=== PATIENT | female | born 1955 | race Caucasian/White ===

== ENCOUNTER → 2016-08-13 | Outpatient (CLI) | payer BC ==
--- OUTSIDE RECORDS SUMMARY | 2016-08-12 06:14 | XMS REPORT | Continuity of Care Document ---
Author Author [facility] Organization [facility] Address Unknown Phone Unavailable Allergies Active Description Code Type Severity Reaction Onset Reported/Identified Relationship to Patient Clinical Status Yes No Known Drug Allergies [id number] Drug Allergy Unknown N/ A 08/15/2015 Medications Problems Date Dx Coded Attending Type Code Diagnosis Diagnosed By 04/02/2015 ADELAIDE SIBLEY MD Ot Z12.31 04/09/2015 ADELAIDE SIBLEY MD Ot Z12.31 08/15/2015 LAWSON CARDOZA DO Ot S93.602A UNSPECIFIED SPRAIN OF LEFT FOOT, INITIAL 08/15/2015 LAWSON CARDOZA DO Ot W10.9XXA FALL (ON) (FROM) UNSPECIFIED STAIRS AND 08/15/2015 LAWSON CARDOZA DO Ot Y92.[address] IN UNSP NON-INSTITUT ( PRIVATE 08/15/2015 LAWSON CARDOZA DO Ot Y99.8 OTHER EXTERNAL CAUSE STATUS 08/16/2015 LAWSON CARDOZA DO Ot S93.602A 08/16/2015 LAWSON CARDOZA DO Ot W10.9XXA 08/16/2015 LAWSON CARDOZA DO Ot Y92.009 08/16/2015 LAWSON CARDOZA DO Ot Y99.8 12/11/2015 Ot 793.81 MAMMOGRAPHIC MICROCLACIFICATION 12/11/2015 Ot V76.12 OTH SCREEN MAMMO-MALIGN NEOPLASM OF PIPER 12/11/2015 Ot V76.12 OTH SCREEN MAMMO-MALIGN NEOPLASM OF PIPER 12/11/2015 ADELAIDE SIBLEY MD Ot V76.12 OTH SCREEN MAMMO-MALIGN NEOPLASM OF PIPER 12/11/2015 ADELAIDE SIBLEY MD Ot V76.12 OTH SCREEN MAMMO-MALIGN NEOPLASM OF PIPER 12/11/2015 ADELAIDE SIBLEY MD Ot Z12.31 ENCNTR SCREEN MAMMOGRAM FOR MALIGNANT NE 01/07/2016 Ot 793.81 MAMMOGRAPHIC MICROCLACIFICATION 01/07/2016 Ot V76.12 OTH SCREEN MAMMO-MALIGN NEOPLASM OF PIPER 01/07/2016 Ot V76.12 OTH SCREEN MAMMO-MALIGN NEOPLASM OF PIPER 01/07/2016 ADELAIDE SIBLEY MD Ot V76.12 OTH SCREEN MAMMO-MALIGN NEOPLASM OF PIPER 01/07/2016 ADELAIDE SIBLEY MD Ot V76.12 OTH SCREEN MAMMO-MALIGN NEOPLASM OF PIPER 01/07/2016 ADELAIDE SIBLEY MD Ot Z12.31 ENCNTR SCREEN MAMMOGRAM FOR MALIGNANT NE 01/28/2016 Ot 793.81 MAMMOGRAPHIC MICROCLACIFICATION 01/28/2016 Ot V76.12 OTH SCREEN MAMMO-MALIGN NEOPLASM OF PIPER 01/28/2016 Ot V76.12 OTH SCREEN MAMMO-MALIGN NEOPLASM OF PIPER 01/28/2016 TOÑITO MACDONALD, ADELAIDE Gonzalez Ot V76.12 OTH SCREEN MAMMO-MALIGN NEOPLASM OF PIPER 01/28/2016 ADELAIDE SIBLEY MD Ot V76.12 OTH SCREEN MAMMO-MALIGN NEOPLASM OF PIPER 01/28/2016 ADELAIDE SIBLEY MD Ot Z12.31 ENCNTR SCREEN MAMMOGRAM FOR MALIGNANT NE 04/08/2016 MERRY DUBOSE TALENT ADVISOR Ot Z12.31 ENCNTR SCREEN MAMMOGRAM FOR MALIGNANT NE 04/13/2016 MERRY DUBOSE TALENT ADVISOR Ot Z12.31 ENCNTR SCREEN MAMMOGRAM FOR MALIGNANT NE 04/16/2016 MERRY DUBOSE TALENT ADVISOR Ot Z12.31 ENCNTR SCREEN MAMMOGRAM FOR MALIGNANT NE Procedures Results Encounters ACCT No. Visit Date/Time Discharge Status Pt. Type Provider Facility Loc./Unit Complaint [id number] 08/15/2015 18:29:00 2015 20:25:00 DIS Emergency LAWSON CARDOZA DO [facility] ER L LEG PAIN [id number] 03/29/2015 10:10:00 2014 23:59:59 CLS Outpatient ADELAIDE SIBLEY MD [facility] RAD SCREENING [id number] 03/28/2014 09:18:00 2013 23:59:59 CLS Outpatient ADELAIDE SIBLEY MD [facility] RAD SCREENING [id number] 03/31/2013 14:22:00 2012 23:59:59 CLS Outpatient TOÑITO MACDONALD, ADELAIDE Gonzalez [facility] RAD SCREENING [id number] 08/12/2016 06:10:00 ACT Outpatient SHIRAZ MACDONALD, VIVIENNE Collier [facility] PREOP SCREENING [id number] 04/07/2016 13:08:00 ACT Outpatient MERRY DUBOSE APRN [facility] RAD SCREENING [id number] 03/31/2012 09:07:00 Document Registration [id number] 03/30/2011 10:46:00 Document Registration
[~2016-08-13] VITALS: Ht 154.9 cm; Wt 57.6 kg
[~2016-08-13] MED LIST: AMOX500C2
--- OUTSIDE RECORDS SUMMARY | 2016-08-13 08:33 | XMS REPORT | Continuity of Care Document ---
Author Author [facility] Organization [facility] Address Unknown Phone Unavailable Allergies Active Description Code Type Severity Reaction Onset Reported/Identified Relationship to Patient Clinical Status Yes No Known Drug Allergies [id number] Drug Allergy Unknown N/ A 08/13/2016 Medications Problems Date Dx Coded Attending Type [...] MAMMOGRAM FOR MALIGNANT NE 04/08/2016 MERRY DUBOSE CHEMISTRY INSTRUCTOR Ot Z12.31 ENCNTR SCREEN MAMMOGRAM FOR MALIGNANT NE 04/13/2016 MERRY DUBOSE CHEMISTRY INSTRUCTOR Ot Z12.31 ENCNTR SCREEN MAMMOGRAM FOR MALIGNANT NE 04/16/2016 MERRY DUBOSE CHEMISTRY INSTRUCTOR Ot Z12.31 ENCNTR SCREEN MAMMOGRAM FOR MALIGNANT NE Procedures Results Encounters ACCT No. Visit Date/Time Discharge Status Pt. Type Provider Facility Loc./Unit Complaint [id number] 08/15/2015 18:29:00 2015 20:25:00 DIS Emergency LAWSON CARDOZA DO [facility] ER L LEG PAIN [id number] 03/29/2015 10:10:00 2014 23:59:59 CLS Outpatient ADELAIDE SIBLEY MD [facility] RAD SCREENING [id number] 03/28/2014 09:18:00 2013 23:59:59 CLS Outpatient ADELAIDE SIBLEY MD [facility] RAD SCREENING [id number] 03/31/2013 14:22:00 2012 23:59:59 CLS Outpatient TOÑITO MACDONALD, ADELAIDE Gonzalez [facility] RAD SCREENING [id number] 08/13/2016 08:15:00 ACT Outpatient SHIRAZ MACDONALD, VIVIENNE Collier [facility] PREOP SCREENING [id number] 04/07/2016 13:08:00 ACT Outpatient MERRY DUBOSE APRN [facility] RAD SCREENING [id number] 03/31/2012 09:07:00 Document Registration [id number] 03/30/2011 10:46:00 Document Registration
== END ==
LOC: PREOP 08-12 06:10
PROVIDERS: ATTEND Internal Medicine
DX: Z01.818 Encounter for other preprocedural examination (principal); Z12.11 Encounter for screening for malignant neoplasm of colon

== ENCOUNTER 2016-08-14 09:04 | Day surgery (SDC) | payer BC ==
[~2016-08-14] VITALS: Ht 154.9 cm; Wt 57.6 kg
--- OUTSIDE RECORDS SUMMARY | 2016-08-14 09:11 | XMS REPORT | Continuity of Care Document ---
Author Author [facility] Organization [facility] Address Unknown Phone Unavailable Allergies Active Description Code Type Severity Reaction Onset Reported/Identified Relationship to Patient Clinical Status Yes No Known Drug Allergies [id number] Drug Allergy Unknown N/ A 08/13/2016 Medications [...] SCREEN MAMMO-MALIGN NEOPLASM OF PIPER 01/28/2016 ADELAIDE SIBLYE MD Ot Z12.31 ENCNTR SCREEN MAMMOGRAM FOR MALIGNANT NE 04/08/2016 MERRY DUBOSE SHELVER Ot Z12.31 ENCNTR SCREEN MAMMOGRAM FOR MALIGNANT NE 04/13/2016 MERRY DUBOSE SHELVER Ot Z12.31 ENCNTR SCREEN MAMMOGRAM FOR MALIGNANT NE 04/16/2016 MERRY DUBOSE SHELVER Ot Z12.31 ENCNTR SCREEN MAMMOGRAM FOR MALIGNANT NE Procedures Results Encounters ACCT No. Visit Date/Time Discharge Status Pt. Type Provider Facility Loc./Unit Complaint [id number] 08/15/2015 18:29:00 2015 20:25:00 DIS Emergency LAWSON CARDOZA DO [facility] ER L LEG PAIN [id number] 03/29/2015 10:10:00 2014 23:59:59 CLS Outpatient ADELAIDE SIBLEY MD [facility] RAD SCREENING [id number] 03/28/2014 09:18:00 2013 23:59:59 CLS Outpatient ADELAIDE SIBLEY MD [facility] RAD SCREENING [id number] 03/31/2013 14:22:00 2012 23:59:59 CLS Outpatient TOÑITO MACDONALD, ADELAIDE Gonzalez [facility] RAD SCREENING [id number] 08/13/2016 08:15:00 ACT Outpatient SHIRAZ MACDONALD, VIVIENNE Collier [facility] PREOP SCREENING [id number] 04/07/2016 13:08:00 ACT Outpatient MERRY DUBOSE APRN [facility] RAD SCREENING [id number] 03/31/2012 09:07:00 Document Registration [id number] 03/30/2011 10:46:00 Document Registration
--- OUTSIDE RECORDS SUMMARY | 2016-08-14 09:11 | XMS REPORT | Continuity of Care Document ---
Author Author [facility] Organization [facility] Address Unknown Phone Unavailable Allergies Active Description Code Type Severity Reaction Onset Reported/Identified Relationship to Patient Clinical Status Yes No Known Drug Allergies [id number] Drug Allergy Unknown N/ A 08/13/2016 Medications [...] MAMMOGRAM FOR MALIGNANT NE 04/08/2016 MERRY DUBOSE HOSPITAL WARD CLERK Ot Z12.31 ENCNTR SCREEN MAMMOGRAM FOR MALIGNANT NE 04/13/2016 MERRY DUBOSE HOSPITAL WARD CLERK Ot Z12.31 ENCNTR SCREEN MAMMOGRAM FOR MALIGNANT NE 04/16/2016 MERRY DUBOSE HOSPITAL WARD CLERK Ot Z12.31 ENCNTR SCREEN MAMMOGRAM FOR MALIGNANT NE Procedures Results Encounters ACCT No. Visit Date/Time Discharge Status Pt. Type Provider Facility Loc./Unit Complaint [id number] 08/15/2015 18:29:00 2015 20:25:00 DIS Emergency LAWSON CARDOZA DO [facility] ER L LEG PAIN [id number] 03/29/2015 10:10:00 2014 23:59:59 CLS Outpatient ADELAIDE SIBLEY MD [facility] RAD SCREENING [id number] 03/28/2014 09:18:00 2013 23:59:59 CLS Outpatient ADELAIDE SIBLEY MD [facility] RAD SCREENING [id number] 03/31/2013 14:22:00 2012 23:59:59 CLS Outpatient TOÑITO MACDONALD, ADELAIDE Gonzalez [facility] RAD SCREENING [id number] 08/13/2016 08:15:00 ACT Outpatient SHIRAZ MACDONALD, VIVIENNE Collier [facility] PREOP SCREENING [id number] 04/07/2016 13:08:00 ACT Outpatient MERRY DUBOSE APRN [facility] RAD SCREENING [id number] 03/31/2012 09:07:00 Document Registration [id number] 03/30/2011 10:46:00 Document Registration
[2016-08-14 09:15] VITALS: BP 114/78
--- NOTE | 2016-08-14 09:21 | Pre-Op Note & Conscious Sedat ---
Pre-Operative Progress Note H&P Reviewed The H&P was reviewed, patient examined and no changes noted. Date H&P Reviewed: Aug 14, 2016 Time H&P Reviewed: 09:21 Conscious Sedation Pre-Proced ASA Class: 1, 2 Airway Mallampati Classification: (cheesh-na appropriate class) I. II. III, IV Lungs Heart ASA score ASA 1: a normal healthy patient ASA 2: a patient with a mild systemic disease (mid diabetes, controlled hypertension, obesity ASA 3: a patient with a severe systemic disease that limits activity (angina , COPD, prior Myocardial infarction) ASA 4: a patient with an incapacitating disease that is a constant threat to life (CHF, renal failure) ASA 5: a moribund patient not expected to survive 24 hrs. (ruptured aneurysm) ASA 6: a declared brain patient whose organs are being harvested. For emergent operations, add the letter E after the classification Grade 2 Sedation Plan: Analgesia, Amnesia, Plan communicated to team members, Discussed options with patient/fam, Discussed risks with patient/fam Note The patient is an appropriate candidate to undergo the planned procedure, sedation, and anesthesia. The patient immediately re-assessed prior to indication. VIVIENNE WELDON MD Aug 14, 2016 09:21
[2016-08-14] MEDS ORDERED: fentaNYL INJECTION 100 MCG/2 ML AMP IVP PRN (09:30)
[2016-08-14] MEDS ORDERED: MIDAZOLAM 2 MG/2 ML (VERSED) VIAL IVP PRN (09:30)
[2016-08-14] MEDS ORDERED: FLUMAZENIL (ROMAZICON) 0.1 MG/ML 5 ML VIAL INJ PRN (09:30)
[2016-08-14] MEDS ORDERED: LIDOCAINE JELLY 2% (XYLOCAINE) 5 ML TUBE MM PRN (09:30)
[2016-08-14] MEDS ORDERED: NALOXONE 0.4 MG/ML 1 ML (NARCAN) VIAL IVP PRN (09:30)
[2016-08-14] MEDS ORDERED: 1/2 NS IV SOLUTION 1,000 ML IV PRN (09:30)
[2016-08-14] MEDS ORDERED: PROPOFOL INJECTION 50 ML IV ONE (09:45)
[2016-08-14] MEDS ORDERED: MIDAZOLAM 2 MG/2 ML (VERSED) VIAL ONE (09:46)
[2016-08-14] MEDS ORDERED: FAMOTIDINE 20MG/2ML IV (PEPCID) ONE (09:50)
[2016-08-14] MEDS ORDERED: LIDOCAINE JELLY 2% (XYLOCAINE) 5 ML TUBE ONE (09:55)
--- NOTE | 2016-08-14 09:58 | HISTORY AND PHYSICAL ---
DICTATING PHYSICIAN: Dr. Johnson DATE OF ADMISSION: 08/14/2016 Mrs. Jean-Baptiste is a 51-year-old white female referred by Dr. Hanson for screening colonoscopy. She last underwent colonoscopy in 2007 at which time she had one polyp removed from her hepatic flexure. Previously on her first colonoscopy in 2002 she had had an adenomatous pedunculated polyp removed from her sigmoid colon. There have been no changes in her family history, from a colon standpoint. She is not aware of any family history for colon cancer or colon polyps. Her brother did from lung cancer at the age of 58 and was a heavy smoker. She does have a history of IBS. Earlier on she was diarrhea predominant, now she has more issues with constipation. She does recall waking up during her last colonoscopy and having some discomfort and she is concerned about this. For this reason we did discuss anesthesia and the administration of Diprivan which she is in agreement with. She has noted no bowel habit change and denies any bright red blood per rectum. She denies any significant past surgical history SOCIAL HISTORY: She is employed with no past smoking history and rare alcohol intake. ALLERGIES: She reports no known medical allergies. MEDICATIONS: She takes no current prescription medication. She does take occasional Tylenol and ibuprofen. PHYSICAL EXAMINATION: Reveals a pleasant normal weight white female, appears to be in no acute distress. Blood pressure is 120/64. CHEST: Clear. CV: Reveals regular rate and rhythm without murmur, S3 or S4. She is a Mallampati class II oropharyngeal configuration. Pharynx is clear. ABDOMEN: Soft, supple without masses, organomegaly or tenderness. Bowel sounds are present. EXTREMITIES: Reveal no cyanosis, clubbing, or edema. SKIN: Skin evaluation reveals no suspicious nevi and no evidence for telangiectasia. ASSESSMENT: The patient was set-up for screening colonoscopy on 08/14. Anesthesia was contacted as well for Diprivan administration considering history of IBS and previous difficulty with conscious sedation. Questions were answered and prep instructions were given. Electronic medical record was reviewed and 45 minutes of care time was spent today. I thank you for the referral of this pleasant lady. Sincerely, Srikanth Johnson Job ID: [id number] Dictated Date: 08/11/2016 20:15:00 Network Support Administrator Date: 08/12/2016 09:55:13/olivia
[2016-08-14] MEDS ORDERED: proPOfol 200 MG/20 ML (DIPRIVAN) VIAL IV ONE (10:17)
[2016-08-14 10:50] VITALS: BP 130/85
[2016-08-14 11:20] VITALS: BP 127/82
[2016-08-14 11:35] VITALS: BP 127/82
--- NOTE | 2016-08-14 20:12 | PROCEDURE REPORT ---
PROCEDURE PHYSICIAN: VIVIENNE WELDON DATE OF PROCEDURE: 08/14/2016 INDICATION FOR THE PROCEDURE: Screening colonoscopy. PROCEDURE: The patient was placed in the left lateral decubitus position. Prior to undergoing colonoscopy, digital rectal evaluation was performed. Anal sphincter tone was normal and perianal reflex was intact. No abnormalities were noted to digital inspection of the anal canal or distal rectal vault. The colonoscope was inserted into the rectum and under visualization, advanced to the cecum. The cecum was identified by identification of the ileocecal valve and cecal strap, as well as appendiceal orifice. Photographic documentation was obtained. Careful inspection was made as the colonoscope was withdrawn. The patient did have an irritable bowel type response to air insufflation and colonic manipulation, despite Diprivan per anesthesia. Diprivan was given due to history of significant IBS and secondary anxiety over the procedure. For these reasons I was fairly certain that conscious sedation was not going to be adequate for keeping this patient comfortable. FINDINGS: There no evidence for internal or external hemorrhoids and the rectum, sigmoid colon, descending colon, transverse colon, ascending colon were unremarkable. The patient did have a fair amount of sigmoid spasm during the procedure. A diminutive 2 mm sessile polyp was present in the cecum. It was photographed, biopsied and ablated, with no blood loss being noted. The appendiceal orifice and the remainder of the cecum were unremarkable. ASSESSMENT: One diminutive polyp was removed from the cecum without blood loss being noted at the time of the procedure. The patient did have a lot of sigmoid spasm and irritable bowel type response as noted above requiring Diprivan per anesthesia. As long as there are no surprises on histopathology report, would advocate repeat screening colonoscopy in 10 years as long as there continues to be no family history of first degree relatives with colon cancer. I thank you for the referral of this pleasant lady. Sincerely, Job ID: [id number] Dictated Date: 08/14/2016 11:01:20 Blanchard Grinder Operator Date: 08/14/2016 20:05:35 / goran
== END 2016-08-14 11:35 | disposition home or self-care (01) ==
LOC: ENDO 09:04
PROVIDERS: ATTEND Internal Medicine
DX: Z12.11 Encounter for screening for malignant neoplasm of colon (principal); K63.5 Polyp of colon; K58.9 Irritable bowel syndrome, unspecified
CPT/HCPCS: 88305

== ENCOUNTER → 2017-03-01 | Outpatient (CLI) | payer BC | LOC: CARD 13:12 | PROVIDERS: ATTEND Nurse Practitioner Family | DX: R01.1 Cardiac murmur, unspecified (principal) | CPT/HCPCS: 93306 ==

== ENCOUNTER → 2017-04-27 | Outpatient (CLI) | payer BC ==
--- NOTE | 2017-04-28 19:25 | Diagnostic Imaging Report ---
Bilateral screening mammogram 2D views with tomosynthesis. The current study was also evaluated with a Computer Aided Detection (CAD) system. INDICATION: Screening. No current complaints stated on the questionnaire. COMPARISON: 04/07/16. FINDINGS: The breasts are composed of heterogeneously dense parenchyma which may decrease mammographic sensitivity. Benign-appearing calcifications are seen. Allowing for technique and positional differences, no suspicious change is seen. IMPRESSION: Dense breasts with no definite change. ACR BI-RADS Category 2: Benign findings. Result letter will be mailed to the patient. Note: At least 10% of breast cancer is not imaged by mammography. Dictated on workstation # [id number]
== END ==
LOC: RAD 15:06
PROVIDERS: ATTEND Family Medicine
DX: Z12.31 Encounter for screening mammogram for malignant neoplasm of breast (principal)
CPT/HCPCS: 77067

== ENCOUNTER → 2017-08-06 | Outpatient (CLI) | payer BC ==
--- NOTE | 2017-08-06 10:37 | Diagnostic Imaging Report ---
INDICATION: Palpable lump in the soft tissues of the low back. TECHNIQUE: Sonographic interrogation of the area of palpable abnormality in the left paramidline low back was performed. FINDINGS: There is a well-defined, ovoid hypoechoic mass at this location measuring 4.4 x 2.4 x 3.6 cm. This does demonstrate internal echogenicity. No internal vascularity is identified. There is good posterior acoustic enhancement. This may represent a complex cyst such as an enlarged sebaceous cyst. This is just below the skin surface. IMPRESSION: Complex cystic mass in the subcutaneous tissues of the left para midline low back corresponding to the palpable abnormality. This may represent an enlarged sebaceous cyst. Close clinical followup is recommended to confirm stability and resolution. Dictated by: Dictated on workstation # [id number]
== END ==
LOC: RAD 09:05
PROVIDERS: ATTEND Nurse Practitioner Family
DX: R22.2 Localized swelling, mass and lump, trunk (principal)
CPT/HCPCS: 76604

== ENCOUNTER 2017-08-08 11:32 | Emergency (ER) | payer BC ==
[~2017-08-08] VITALS: Ht 154.9 cm; Wt 52.2 kg
--- OUTSIDE RECORDS SUMMARY | 2017-08-08 11:36 | XMS REPORT | Continuity of Care Document ---
Author Author [facility] Organization [facility] Address Unknown Phone Unavailable Allergies Active Description Code Type Severity Reaction Onset Reported/Identified Relationship to Patient Clinical Status Yes No Known Drug Allergies [id number] Drug Allergy Unknown N/A 08/13/2016 Medications There is no data. Problems Date Dx Coded Attending Type Code Diagnosis Diagnosed By 04/02/2015 ADELAIDE SIBLEY MD Ot Z12.31 04/09/2015 ADELAIDE SIBLEY MD Ot Z12.31 08/15/2015 LAWSON CARDOZA DO Ot S93.602A UNSPECIFIED SPRAIN OF LEFT FOOT, INITIAL 08/15/2015 LAWSON CARDOZA DO Ot W10.9XXA FALL (ON) (FROM) UNSPECIFIED STAIRS AND 08/15/2015 LAWSON CARDOZA DO Ot Y92.[address] IN UNSP NON-INSTITUT (PRIVATE 08/15/2015 LAWSON CARDOZA DO Ot Y99.8 OTHER [...] OTH SCREEN MAMMO-MALIGN NEOPLASM OF PIPER 01/07/2016 TOÑITO MACDONALD, ADELAIDE Gonzalez Ot V76.12 OTH SCREEN MAMMO-MALIGN NEOPLASM OF PIPER 01/07/2016 TOÑITO MACDONALD, ADELAIDE Gonzalez Ot V76.12 OTH SCREEN MAMMO-MALIGN NEOPLASM OF PIPER 01/07/2016 TOÑITO MACDONALD, ADELAIDE Gonzalez Ot Z12.31 ENCNTR SCREEN MAMMOGRAM FOR MALIGNANT NE 01/28/2016 Ot 793.81 MAMMOGRAPHIC MICROCLACIFICATION 01/28/2016 Ot V76.12 OTH SCREEN MAMMO-MALIGN NEOPLASM OF PIPER 01/28/2016 Ot V76.12 OTH SCREEN MAMMO-MALIGN NEOPLASM OF PIPER 01/28/2016 TOÑITO MACDONALD, ADELAIDE Gonzalez Ot V76.12 OTH SCREEN MAMMO-MALIGN NEOPLASM OF PIPER 01/28/2016 TOÑITO MACDONALD, ADELAIDE Gonzalez Ot V76.12 OTH SCREEN MAMMO-MALIGN NEOPLASM OF PIPER 01/28/2016 TOÑITO MACDONALD, ADELAIDE Gonzalez Ot Z12.31 ENCNTR SCREEN MAMMOGRAM FOR MALIGNANT NE 04/08/2016 MERRY DUBOSE CLERK CHECKER Ot Z12.31 ENCNTR SCREEN MAMMOGRAM FOR MALIGNANT NE 04/13/2016 MERRY DUBOSE CLERK CHECKER Ot Z12.31 ENCNTR SCREEN MAMMOGRAM FOR MALIGNANT NE 04/16/2016 MERRY DUBOSE CLERK CHECKER Ot Z12.31 ENCNTR SCREEN MAMMOGRAM FOR MALIGNANT NE 08/14/2016 VIVIENNE WELDON MD Ot K58.9 IRRITABLE BOWEL SYNDROME WITHOUT DIARRHE 08/14/2016 VIVIENNE WELDON MD Ot K63.5 POLYP OF COLON 08/14/2016 VIVIENNE WELDON MD Ot Z12.11 ENCOUNTER FOR SCREENING FOR MALIGNANT NE 08/19/2016 VIVIENNE WELDON MD Ot K58.9 IRRITABLE BOWEL SYNDROME WITHOUT DIARRHE 08/19/2016 VIVIENNE WELDON MD Ot K63.5 POLYP OF COLON 08/19/2016 VIVIENNE WELDON MD Ot Z12.11 ENCOUNTER FOR SCREENING FOR MALIGNANT NE 08/19/2016 VIVIENNE WELDON MD Ot K58.9 IRRITABLE BOWEL SYNDROME WITHOUT DIARRHE 08/19/2016 VIVIENNE WELDON MD Ot K63.5 POLYP OF COLON 08/19/2016 VIVIENNE WELDON MD Ot Z12.11 ENCOUNTER FOR SCREENING FOR MALIGNANT NE 08/20/2016 VIVIENNE WELDON MD Ot K58.9 IRRITABLE BOWEL SYNDROME WITHOUT DIARRHE 08/20/2016 VIVIENNE WELDON MD Ot K63.5 POLYP OF COLON 08/20/2016 VIVIENNE WELDON MD Ot Z12.11 ENCOUNTER FOR SCREENING FOR MALIGNANT NE 03/03/2017 GEETHA NUNEZ Ot R01.1 CARDIAC MURMUR, UNSPECIFIED 03/07/2017 GEETHA NUNEZ Ot R01.1 CARDIAC MURMUR, UNSPECIFIED 03/17/2017 GEETHA NUNEZ Ot R01.1 CARDIAC MURMUR, UNSPECIFIED 05/06/2017 YOGI JOHNSON MD Ot Z12.31 ENCNTR SCREEN MAMMOGRAM FOR MALIGNANT NE Procedures There is no data. Results There is no data. Encounters ACCT No. Visit Date/Time Discharge Status Pt. Type Provider Facility Loc./Unit Complaint [id number] 04/27/2017 15:06:00 04/27/2017 23:59:59 CLS Outpatient YOGI JOHNSON MD [facility] RAD SCREENING [id number] 03/01/2017 13:12:00 03/01/2017 23:59:59 CLS Outpatient GEETHA NUNEZ [facility] CARD HEART MURMUR [id number] 08/14/2016 09:04:00 08/14/2016 11:35:00 DIS Outpatient VIVIENNE WELDON MD [facility] ENDO SCREENING [id number] 08/13/2016 08:15:00 08/13/2016 23:59:59 CLS Outpatient VIVIENNE WELDON MD [facility] PREOP SCREENING [id number] 04/07/2016 13:08:00 04/07/2016 23:59:59 CLS Outpatient MERRY DUBOSE APRN [facility] RAD SCREENING [id number] 08/15/2015 18:29:00 08/15/2015 20:25:00 DIS Emergency LAWSON CARDOZA DO [facility] ER L LEG PAIN [id number] 03/29/2015 10:10:00 03/29/2015 23:59:59 CLS Outpatient ADELAIDE SIBLEY MD [facility] RAD SCREENING [id number] 03/28/2014 09:18:00 03/28/2014 23:59:59 CLS Outpatient ADELAIDE SIBLEY MD [facility] RAD SCREENING [id number] 03/31/2013 14:22:00 03/31/2013 23:59:59 CLS Outpatient ADELAIDE SIBLEY MD [facility] RAD SCREENING [id number] 08/08/2017 11:33:00 ACT Emergency ROSEMARY MACDONALD, VIVIENNE Pimentel [facility] ER ABSCESS ON BACK [id number] 08/06/2017 09:05:00 ACT Outpatient MERRY DUBOSE APRN [facility] RAD NODULE AT LUMBAR SPINE [id number] 03/31/2012 09:07:00 Document Registration [id number] 03/30/2011 10:46:00 Document Registration
--- NOTE | 2017-08-08 12:17 | ED Integumentary General ---
General Chief Complaint: Skin/Wound Problems Stated Complaint: ABSCESS ON BACK Nursing Triage Note: PT HAS ABSCESS TO MID LOWER BACK. PT WAS SEEN AND TX FOR THIS ON 08/06/17. SHE IS TAKING KEFLEX AND PREDNISONE. PT ALSO HAD US ON WOUND ON 08/06/17. Source: patient Exam Limitations: no limitations History of Present Illness Date Seen by Provider: Aug 08, 2017 Time Seen by Provider: 12:03 Initial Comments 62-year-old white female presents with progressive abscess over the sacral area. Patient was placed on Keflex without improvement. Next Patient denies chills or fever. Patient denies change in bowel habits. There is been no pain with bowel movements. Patient denies similar soda in the past to this area. Allergies and Home Medications Allergies Coded Allergies: No Known Drug Allergies (Unverified , 08/13/16) Home Medications No Active Prescriptions or Reported Meds Patient Home Medication List Home Medication List Reviewed: Yes Constitutional: No chills, No fever EENTM: no symptoms reported Respiratory: no symptoms reported Cardiovascular: no symptoms reported Gastrointestinal: no symptoms reported Genitourinary: no symptoms reported Musculoskeletal: no symptoms reported Skin: other (abscess over the sacral area) Psychiatric/Neurological: No Symptoms Reported Endocrine: No Symptoms Reported Past Ihosplr-Isorwm-Onciuf Hx Patient Social History Alcohol Use: Denies Use Recreational Drug Use: No Smoking Status: Never a Smoker 2nd Hand Smoke Exposure: No Recent Foreign Travel: No Contact w/Someone Who Travel: No Recent Infectious Disease Expo: No Recent Hopitalizations: No Immunizations Up To Date Date of Influenza Vaccine: Mar 02, 2016 Seasonal Allergies Seasonal Allergies: Yes Surgeries History of Surgeries: Yes (R ankle, bilateral knee scope) Surgeries: Orthopedic Respiratory History of Respiratory Disorde: No Cardiovascular History of Cardiac Disorders: No Neurological History of Neurological Disord: No Reproductive System Hx Reproductive Disorders: No Sexually Transmitted Disease: No HIV/AIDS: No Female Reproductive Disorders: Denies Gastrointestinal History of Gastrointestinal Di: Yes Gastrointestinal Disorders: Polyps, Irritable Bowel Musculoskeletal History of Musculoskeletal Dis: No Endocrine History of Endocrine Disorders: No HEENT Loss of Vision: Bilateral Hearing Impairment: Denies Cancer History of Cancer: No Psychosocial History of Psychiatric Problem: No Integumentary History of Skin or Integumenta: No Blood Transfusions History of Blood Disorders: No Adverse Reaction to a Blood Tr: No (N/A) Reviewed Nursing Assessment Reviewed/Agree w Nursing PMH: Yes Physical Exam Vital Signs Vital Signs - First Documented 08/08/17 11:45 Temp 98.9 Pulse 85 Resp 16 B/P (MAP) 133/71 (91) Pulse Ox 98 O2 Delivery Room Air Capillary Refill : Less Than 3 Seconds General Appearance: WD/WN, no apparent distress HEENT: normal ENT inspection Neck: normal inspection Respiratory: no respiratory distress Back: normal inspection Extremities: normal range of motion, normal inspection Neurologic/Psychiatric: no motor/sensory deficits, alert Skin: other (there is a 10 cm diameter abscess over the sacral area. 1 percent Xylocaine was employed for local anesthesia and the abscess was incised and drained with a number 11 blade. Approximately 50 mL of purulent material was expressed. The wound was packed after a culture and sensitivity was obtained.) Progress/Results/Core Measures Results/Orders Vital Signs/I&O Vital Sign - Last 12Hours 08/08/17 11:45 Temp 98.9 Pulse 85 Resp 16 B/P (MAP) 133/71 (91) Pulse Ox 98 O2 Delivery Room Air Blood Pressure Mean: 91 Progress Note : Time: 12:19 Progress Note The abscess was incised and drained, cultured, and packed. Telephone consultation was undertaken with Dr. Grissom. Patient will keep her appointment with Dr. Grissom tomorrow. Patient was placed on Bactrim and hydrocodone. Patient received a fentanyl injection in the emergency department. Departure Impression Impression: Primary Impression: Abscess Disposition: 01 HOME, SELF-CARE Condition: Improved Departure-Patient Inst. Decision time for Depature: 12:24 Referrals: YOGI JOHNSON MD (PCP/Family) Primary Care Physician TORO GRISSOM DO Patient Instructions: Abscess Incision and Drainage (DC) Add. Discharge Instructions: Bactrim and [place] as prescribed. Follow-up with Dr. Grissom tomorrow as scheduled. Return if any problems or questions. All discharge instructions reviewed with patient and/or family. Voiced understanding. Scripts No Active Prescriptions or Reported Meds VIVIENNE RILEY MD Aug 08, 2017 12:17
[2017-08-08] MEDS ORDERED: fentaNYL INJECTION 100 MCG/2 ML AMP IVP ONE (12:30)
[2017-08-08] MEDS ORDERED: fentaNYL INJECTION 100 MCG/2 ML AMP IM ONE (12:30)
[2017-08-08 12:40] VITALS: BP 133/71
== END 2017-08-08 12:40 | disposition home or self-care (01) ==
LOC: EDUNIT# 11:32 → ER 11:33
DX: L02.212 Cutaneous abscess of back [any part, except buttock and flank] (principal); Z87.19 Personal history of other diseases of the digestive system; Z79.52 Long term (current) use of systemic steroids
CPT/HCPCS: 87070; 87205

== ENCOUNTER → 2018-05-02 | Outpatient (CLI) | payer BC ==
--- NOTE | 2018-05-02 13:34 | Diagnostic Imaging Report ---
INDICATION: Routine screening. COMPARISON: 04/27/2017 and 04/07/2016. TECHNIQUE: 2D and 3D bilateral screening mammography was performed with CAD. FINDINGS: Both breasts remain heterogeneously dense, limiting the sensitivity of mammography. The parenchymal pattern appears stable. No dominant mass or malignant appearing microcalcifications are seen. There are benign calcifications bilaterally. The axillae are unremarkable. IMPRESSION: No mammographic features suspicious for malignancy are identified. ACR BI-RADS Category 2: Benign findings. Result letter will be mailed to the patient. Note: At least 10% of breast cancer is not imaged by mammography. Dictated by: Dictated on workstation # [id number]
== END ==
LOC: RAD 08:28
PROVIDERS: ATTEND Family Medicine
DX: Z12.31 Encounter for screening mammogram for malignant neoplasm of breast (principal)
CPT/HCPCS: 77067

== ENCOUNTER → 2019-05-03 | Outpatient (CLI) | payer BC ==
--- NOTE | 2019-05-03 08:29 | Diagnostic Imaging Report ---
Digital mammogram. Bilateral screening. The study was compared to the prior exams of 05/02/2018, 04/27/2017 and 04/07/2016. At this time there are no current complaints. The current study was also evaluated with a Computer Aided Detection (CAD) system. FINDINGS: The fibroglandular tissue in both breasts is heterogeneously dense. This does limit the sensitivity of this exam. Overall, there does not appear to have been any significant change when compared to the prior study. No primary or secondary sign of malignancy is noted. IMPRESSION: There is no radiographic evidence for malignancy. ACR BI-RADS Category 1: Negative. Result letter will be mailed to the patient. Note: At least 10% of breast cancer is not imaged by mammography. Dictated by: Dictated on workstation # [id number]
== END ==
LOC: RAD 07:54
PROVIDERS: ATTEND Family Medicine
DX: Z12.31 Encounter for screening mammogram for malignant neoplasm of breast (principal)
CPT/HCPCS: 77067

== ENCOUNTER → 2020-03-21 | Outpatient (CLI) | payer BC ==
--- NOTE | 2020-03-21 16:49 | Diagnostic Imaging Report ---
EXAM: Lumbar spine - 2-3 views. INDICATION: Low back pain. COMPARISON: None. FINDINGS: There are five lumbar-type vertebral bodies. Normal alignment. Vertebral body heights are preserved. Mild diffuse degenerative endplate changes. Mild facet arthropathy at L5-S1. Moderate degenerative changes in the sacroiliac joints. IMPRESSION: 1. Mild spondylotic changes in the lumbar spine. No acute findings. 2. Moderate degenerative changes in the sacroiliac joints. Dictated by: Dictated on workstation # [id number]
== END ==
LOC: RAD 15:37
PROVIDERS: ATTEND Nurse Practitioner Family
DX: M47.816 Spondylosis without myelopathy or radiculopathy, lumbar region (principal); M47.817 Spondylosis without myelopathy or radiculopathy, lumbosacral region; M53.3 Sacrococcygeal disorders, not elsewhere classified
CPT/HCPCS: 72100

== ENCOUNTER → 2020-05-06 | Outpatient (CLI) | payer BC ==
--- NOTE | 2020-05-06 11:37 | Diagnostic Imaging Report ---
INDICATION: Routine screening. Comparison is made with prior mammogram 05/03/2019 and 05/02/2018. 2-D and 3-D bilateral screening mammography was performed with CAD. Both breasts are heterogeneously dense, limiting the sensitivity of mammography. There are benign calcifications present. No mass or malignant appearing microcalcifications are seen. Axillae are unremarkable. IMPRESSION: BI-RADS Category 2 No mammographic features suspicious for malignancy are identified. ACR BI-RADS Category 2: Benign findings. Result letter will be mailed to the patient. Note: At least 10% of breast cancer is not imaged by mammography. Dictated by: Dictated on workstation # [id number]
== END ==
LOC: RAD 08:15
PROVIDERS: ATTEND Nurse Practitioner Family
DX: Z12.31 Encounter for screening mammogram for malignant neoplasm of breast (principal)
CPT/HCPCS: 77063; 77067

== ENCOUNTER → 2021-05-07 | Outpatient (CLI) | payer BC ==
--- NOTE | 2021-05-08 11:19 | Diagnostic Imaging Report ---
INDICATION: Routine screening. COMPARISON is made with prior mammograms from 05/06/2020 and 05/03/2019. 2-D and 3-D bilateral screening mammography was performed with CAD. Both breasts are heterogeneously dense, limiting the sensitivity of mammography. The parenchymal pattern appears stable. There are scattered benign calcifications bilaterally. No mass or malignant appearing microcalcifications are seen. Axillae are unremarkable. IMPRESSION: BI-RADS Category 2 No mammographic features suspicious for malignancy are identified. ACR BI-RADS Category 2: Benign findings. Result letter will be mailed to the patient. Note: At least 10% of breast cancer is not imaged by mammography. Dictated by: Dictated on workstation # [id number]
== END ==
LOC: RAD 14:52
PROVIDERS: ATTEND Nurse Practitioner Family
DX: Z12.31 Encounter for screening mammogram for malignant neoplasm of breast (principal)
CPT/HCPCS: 77063; 77067

== ENCOUNTER 2021-06-11 05:28 | Outpatient (RCR) | payer BC ==
[~2021-06-11] VITALS: Ht 154.9 cm; Wt 54.4 kg
[2021-06-11] MEDS ORDERED: ESTR42.52 VG (12:24)
[2021-06-11] MEDS ORDERED: OMEP-401 PO (12:24)
== END 2021-06-11 09:41 | disposition home or self-care (01) ==
LOC: PREOP 05:28
PROVIDERS: ATTEND Internal Medicine
DX: K62.5 Hemorrhage of anus and rectum (principal); Z20.822 Contact with and (suspected) exposure to COVID-19
CPT/HCPCS: 87635

== ENCOUNTER 2021-06-13 07:10 | Day surgery (SDC) | payer BC ==
--- NOTE | 2021-06-09 20:07 | HISTORY AND PHYSICAL ---
DATE OF SERVICE: PANENDOSCOPY HISTORY AND PHYSICAL HISTORY OF PRESENT ILLNESS: The patient is a 66-year-old white female referred by Dr. Hanson for consideration for panendoscopy. She has had 2 episodes of rather large volume bright red blood per rectum. She has no known past history of hemorrhoids. She denied any associated pain. Denied any associated constipation or bowel habit change with this. First episode was a month ago and the last episode was just a little over a week ago. She does have a past history of adenomatous colonic polyps. Her last colonoscopy was in 2017 with recommendation for 5-year surveillance procedure due to past history of adenomatous polyps. Separate from this, she has been having increased problems with epigastric pain intermittently around Thanksgiving time. She discontinued ibuprofen, but her pain did not improve. She has had an episode of nausea with vomiting that lasted about 12 hours. This occurred several weeks ago. She denied hematemesis or melena and had no rectal bleeding at that time. She has had no night sweats, chills, fever, or change in weight and denies dysphagia. PAST MEDICAL HISTORY: Other than stated above is fairly unremarkable other than a history of reflux for which she has been taking the omeprazole that still having epigastric discomfort. MEDICATIONS ON ADMISSION: Include estradiol vaginal cream for atrophic vaginitis and calcium, magnesium and vitamin D supplementation. PAST SURGICAL HISTORY: She still has her gallbladder and no history of appendectomy. She has had right carpal tunnel repair several years ago and also had a left wrist fracture requiring ORIF. SOCIAL HISTORY: She is employed with no past smoking and only rare social alcohol intake. FAMILY HISTORY: Brother from lung cancer at the age of 58, was a heavy smoker. She is not aware of any family history for colon cancer or other GI tract malignancy. REVIEW OF SYSTEMS: CONSTITUTIONAL: Denies night sweats, chills, fever, change in weight and is fully vaccinated for COVID. GASTROINTESTINAL: As noted in the HPI. PULMONARY: Denies cough, wheezing or shortness of breath. CARDIOVASCULAR: Denies chest pain, orthopnea, PND or pedal edema. PHYSICAL EXAMINATION: GENERAL: Reveals a pleasant white female, did not appear to be in acute distress. VITAL SIGNS: Blood pressure 112/70, weight 120, which is down 7 pounds from over 4-1/2 years ago. HEENT: Unremarkable. CHEST: Clear. CARDIOVASCULAR: Reveals a regular rate and rhythm without murmur, S3 or S4. ABDOMEN: Soft, supple with epigastric pain to palpation was present without rebound or guarding. No mass or organomegaly was noted. EXTREMITIES: Reveal no cyanosis, clubbing or edema. ASSESSMENT AND PLAN: The patient is undergoing diagnostic colonoscopy due to past history of adenomatous colonic polyps as well as recent episodes of bright red blood per rectum. She is undergoing diagnostic EGD for epigastric pain and heartburn type symptoms refractory to daily omeprazole. The patient is being set up for 06/13/2021. Prep instructions with the Suprep kit were given and electronic medical record was reviewed. I thank you for the referral of this pleasant lady. 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
[~2021-06-13] VITALS: Ht 155 cm; Wt 54.4 kg
[~2021-06-13 07:10] MED LIST changes: +ESTR42.52 VG; +OMEP-401 PO
[2021-06-13] MEDS ORDERED: LACTATED RINGERS 1,000 ML IV ONE (07:14)
[2021-06-13] MEDS ORDERED: MIDAZOLAM 2 MG/2 ML (VERSED) VIAL ONE (07:18)
[2021-06-13] MEDS ORDERED: PROPOFOL INJECTION 50 ML IV ONE (07:18)
[2021-06-13] MEDS ORDERED: LACTATED RINGERS 1,000 ML IV STA (07:19)
[2021-06-13] MEDS ORDERED: HURRICAINE EXT TUBE (BENZOCAINE) XX PRN (07:30)
[2021-06-13 07:37] VITALS: BP 120/85
--- NOTE | 2021-06-13 07:56 | Pre-Op Note & Conscious Sedat ---
Pre-Operative Progress Note H&P Reviewed The H&P was reviewed, patient examined and no changes noted. Date H&P Reviewed: Jun 13, 2021 Time H&P Reviewed: 07:45 Conscious Sedation Pre-Proced ASA Score 1 For ASA 3 and 4: Consider anesthesia and medical clearance. Also, for patients with a history of failed moderate sedation consider anesthesia. Airway Lungs Heart ASA score ASA 1: a normal healthy patient ASA 2: a patient with a mild systemic disease (mid diabetes, controlled hypertension, obesity ASA 3: a patient with a severe systemic disease that limits activity (angina, COPD, prior Myocardial infarction) ASA 4: a patient with an incapacitating disease that is a constant threat to life (CHF, renal failure) ASA 5: a moribund patient not expected to survive 24 hrs. (ruptured aneurysm) ASA 6: a declared brain- patient whose organs are being harvested. For emergent operations, add the letter E after the classification Mallampati Classification Grade 2 Sedation Plan Analgesia, Amnesia, Plan communicated to team members, Discussed options with patient/fam, Discussed risks with patient/fam The patient is an appropriate candidate to undergo the planned procedure, sedation, and anesthesia. The patient immediately re-assessed prior to indication. VIVIENNE WELDON MD Jun 13, 2021 07:56
[2021-06-13] MEDS ORDERED: proPOfol 200 MG/20 ML (DIPRIVAN) VIAL IV ONE (08:29)
[2021-06-13 08:40] VITALS: BP 129/74
[2021-06-13 08:45] VITALS: BP 126/62
[2021-06-13 09:45] VITALS: BP 111/63
--- NOTE | 2021-06-13 11:53 | Anesthesia-General Post-Op ---
MAC Patient Condition Mental Status/LOC: Same as Preop Cardiovascular: Satisfactory Nausea/Vomiting: Absent Respiratory: Satisfactory Pain: Controlled Complications: Absent Post Op Complications Complications None Follow Up Care/Instructions Patient Instructions None needed. Anesthesiology Discharge Order Discharge Order Patient is doing well, no complaints, stable vital signs, no apparent adverse anesthesia problems. No complications reported per nursing. ABDULAZIZ VO CRNA Jun 13, 2021 11:53
--- NOTE | 2021-06-13 12:44 | OPERATIVE REPORT ---
DATE OF SERVICE: PANENDOSCOPY SUMMARY INDICATION FOR THE PROCEDURE: Nausea, epigastric pain and rectal bleeding. DESCRIPTION OF PROCEDURE: The patient was placed in the left lateral decubitus position. The endoscope was inserted into the oral cavity and under direct visualization, esophagus was intubated. The scope was passed down the esophagus through stomach and second portion of the duodenum. Careful inspection was made as the endoscope was withdrawn. FINDINGS: The posterior pharynx, epiglottis, arytenoid aperture and true and false vocal folds were unremarkable to visual inspection. Proximal and mid esophagus were unremarkable. A small sliding hiatal hernia was present. Questionable findings suggesting the possibility of short segment Terry's were noted. There was no evidence for nodularity. Erythema was noted at the GE junction without evidence for erosive esophagitis. Biopsies were obtained and submitted for histopathology. The cardia and the fundus of the stomach were unremarkable. There is some mild antral erythema noted. Biopsy was obtained and submitted for Helicobacter and histopathology. No evidence for peptic ulcer disease was noted. The pylorus, pyloric channel, duodenal bulb and second portion of the duodenum were unremarkable. ASSESSMENT: Small sliding hiatal hernia was present with some erythema noted at the GE junction, but no evidence for erosive esophagitis. There are questionable findings suggesting the possibility of short segment Terry's. We will await histopathology report before making recommendations for possible future surveillance and endoscopy. Biopsy was obtained from the antrum for evaluation for Helicobacter. No other significant abnormalities noted on today's procedure. It is questionable whether or not today's findings are responsible for the patient's symptoms, especially several episodes of nausea that she has had with epigastric pain, would consider abdominal ultrasound to evaluate for biliary tract pathology. We then proceeded with colonoscopy. Prior to undergoing colonoscopy, digital rectal evaluation was performed. Anal sphincter tone was normal and the perianal reflexes intact. There is some telangiectatic blood vessels noted in the anal canal, but no overt evidence for hemorrhoids, internal or external. No palpable rectal vault abnormalities were noted. The colonoscope was then inserted into the rectum and under direct visualization advanced to cecum. The cecum was identified by identification of the ileocecal valve and cecal strap. Photographic documentation was obtained. Quality of prep was good. FINDINGS: There was no evidence for internal or external hemorrhoids, but there were some telangiectatic blood vessels in the anal canal, certain possible source of this patient's bright red blood per rectum. The rectum was otherwise unremarkable as was the sigmoid colon, descending colon, splenic flexure, transverse colon and hepatic flexure. Present in the mid sigmoid colon, was a sessile small appearing sessile polyp. It was biopsied and ablated and submitted for histopathology. The remainder of the ascending colon and cecum were unremarkable. ASSESSMENT: There were some telangiectatic blood vessels likely source of this patient's intermittent bright red blood per rectum without overt evidence for hemorrhoids. One questionable small sessile polyp was removed via hot forceps from the mid ascending colon with an otherwise normal colonoscopy to the cecum. As long as there are no surprise on histopathology report, would advocate consideration for repeat screening colonoscopy in 10 years. I thank you for the referral of this pleasant lady. Job ID: [id number] DocumentID: [id number] Dictated Date: 06/13/2021 08:42:09 Director Telemetry Date: 06/13/2021 12:44:12 Dictated By: VIVIENNE WELDON MD
== END 2021-06-13 09:45 | disposition home or self-care (01) ==
LOC: ENDO 07:10
PROVIDERS: ATTEND Internal Medicine
DX: K62.5 Hemorrhage of anus and rectum (principal); K63.5 Polyp of colon; K20.90 Esophagitis, unspecified without bleeding; K29.50 Unspecified chronic gastritis without bleeding; K44.9 Diaphragmatic hernia without obstruction or gangrene; K31.89 Other diseases of stomach and duodenum; I99.8 Other disorder of circulatory system; R10.13 Epigastric pain; K21.9 Gastro-esophageal reflux disease without esophagitis; Z79.899 Other long term (current) drug therapy

== ENCOUNTER → 2022-05-08 | Outpatient (CLI) | payer BC ==
--- NOTE | 2022-05-08 14:34 | Diagnostic Imaging Report ---
Indication: Routine screening. Comparison is made with prior mammograms from 05/07/2021 and 05/06/2020. 2-D and 3-D bilateral screening mammography was performed with CAD. Both breasts are heterogeneously dense, limiting the sensitivity of mammography. The parenchymal pattern is stable. No mass or malignant-appearing microcalcifications are seen. There are benign calcifications bilaterally. Axillae are unremarkable. IMPRESSION: BI-RADS Category 2 No mammographic features suspicious for malignancy are identified. ACR BI-RADS Category 2: Benign findings. Result letter will be mailed to the patient. Note: At least 10% of breast cancer is not imaged by mammography. Dictated by: Dictated on workstation # [id number]
== END ==
LOC: RAD 08:22
PROVIDERS: ATTEND Family Medicine
DX: Z12.31 Encounter for screening mammogram for malignant neoplasm of breast (principal)
CPT/HCPCS: 77063; 77067

== ENCOUNTER → 2022-05-26 | Outpatient (CLI) | payer BC ==
--- NOTE | 2022-05-26 11:49 | Diagnostic Imaging Report ---
INDICATION: Screening postmenopausal. COMPARISON: Baseline FINDINGS: AP Spine L1-L4: [BMD (g/cm2): 0.672] [T-Score: -4.4] [Z-Score: -2.2] [BMD Previous: NA] [BMD % Change: NA] LT Hip Neck: [BMD (g/cm2): 0.664] [T-Score: -23.7] [Z-Score: -0.8] LT Hip Total: [BMD (g/cm2):0.700] [T-Score:-2.4] [Z-Score: -0.7] [BMD Previous: NA] [BMD % Change: NA] RT Hip Neck: [BMD (g/cm2):0.646] [T-Score:-2.8] [Z-Score:-0.9] RT Hip Total: [BMD (g/cm2):0.692] [T-score:-2.5] [Z-Score:-0.8] [BMD Previous:NA] [BMD % Change:NA] *Indicates significant change from prior examination based on 95% confidence level. World Health Organization criteria for BMD interpretation classify patients as Normal (T-score at or above -1.0), Osteopenic (T-score between -1.0 and -2.5) or Osteoporotic (T-score at or below -2.5). LIMITATIONS AND MODIFICATION: None. FRACTURE RISK (FRAX SCORE): The ten year probability of (%): Major Osteoporotic Fracture: [23.4] Hip Fracture: [5.7] IMPRESSION: 1. Osteoporosis. 2. Baseline examination. 3. See below National Osteoporosis Foundation guidelines on when to potentially initiate pharmacologic therapy. Based on the National Osteoporosis Foundation Guidelines, pharmacologic treatment should be initiated in any of the following, unless clinical conditions suggest otherwise: * Any patient with prior fragility fracture of the hip or vertebrae. A spine fracture indicates 5X risk for subsequent spine fracture and 2X risk for subsequent hip fracture. * Osteoporosis (T-score <-2.5). * Postmenopausal women and men age 50 and older with low bone mass/osteopenia (T-score between -1.0 and -2.5) by DXA and 10-year major osteoporotic fracture greater than 20% or a 10-year probability of hip fracture greater than 3%. These fracture risks are supplied above in the FRAX score, if applicable. * Clinician judgement and/or patient preferences may indicate treatment for people with 10-year fracture probabilities above or below these levels. Dictated by: Dictated on workstation # [id number]
== END ==
LOC: RAD 11:00
PROVIDERS: ATTEND Family Medicine
DX: M81.0 Age-related osteoporosis without current pathological fracture (principal); Z78.0 Asymptomatic menopausal state
CPT/HCPCS: 77080

== ENCOUNTER → 2023-05-10 | Outpatient (CLI) | payer BC ==
--- NOTE | 2023-05-10 15:14 | Diagnostic Imaging Report ---
EXAMINATION: 3D bilateral screening mammogram with CAD. INDICATION: Screening. COMPARISON: This study was compared to the prior exams of 05/08/2022, 05/07/2021, and 05/06/2020. PERSONAL HISTORY: At this time, there are no current complaints. FINDINGS: The breasts are heterogenously dense which may obscure small masses. When compared to the previous study, there does not appear to have been any significant change. There is no primary or secondary sign of malignancy noted. IMPRESSION: There is no evidence for malignancy. ACR BI-RADS Category 1: Negative. Result letter will be mailed to the patient. Note: At least 10% of breast cancer is not imaged by mammography. Dictated by: Dictated on workstation # [id number]
== END ==
LOC: RAD 08:20
PROVIDERS: ATTEND Family Medicine
DX: Z12.31 Encounter for screening mammogram for malignant neoplasm of breast (principal)
CPT/HCPCS: 77063; 77067